=== PATIENT | female | born 1995 ===

== ENCOUNTER 2017-11-21 01:28 | Inpatient (IN) | payer MEDICAID, OTHER ==
[2017-11-21] MEDS ORDERED: Sodium Chloride 0.9% 1,000 ML ONE (01:37)
[2017-11-21] MEDS ORDERED: Sodium Chloride 0.9% 1,000 ML IV ONE ×2 (01:43→03:07)
--- NOTE | 2017-11-21 01:43 | C.PDOC ---
History Of Present Illness Patient presents to the ER with a complaint of epigastric and right upper abdominal pain associated with nausea and 3 episodes of vomiting that began today. LMP was 10/31/17. Denies fever, chills, or urinary symptoms. No tolerating po Time Seen by Provider: 11/21/17 01:43 Chief Complaint (Nursing): Abdominal Pain History Per: Patient History/Exam Limitations: no limitations Onset/Duration Of Symptoms: Hrs Current Symptoms Are (Timing): Still Present Severity: Moderate Pain Scale Rating Of: 4 Location Of Pain/Discomfort: Epigastric Radiation Of Pain To:: None Quality Of Discomfort: Unable To Describe Associated Symptoms: Nausea, Vomiting. denies: Fever, Chills, Urinary Symptoms Exacerbating Factors: None Alleviating Factors: None Recent travel outside of the [place]: No Abnormal Vaginal Bleeding: No Past Medical History Reviewed: Historical Data, Nursing Documentation, Vital Signs Vital Signs: Last Vital Signs Temp 98.9 F 11/21/17 05:42 Pulse 82 11/21/17 05:42 Resp 16 11/21/17 05:42 BP 104/67 11/21/17 05:42 Pulse Ox 99 11/21/17 05:59 Family History: States: No Known Family Hx - Social History Hx Alcohol Use: No Hx Substance Use: No - Immunization History Hx Tetanus Toxoid Vaccination: No Hx Influenza Vaccination: No Hx Pneumococcal Vaccination: No Review Of Systems Constitutional: Negative for: Fever, Chills Respiratory: Negative for: Cough, Shortness of Breath Gastrointestinal: Positive for: Nausea, Vomiting, Abdominal Pain Genitourinary: Negative for: Dysuria, Frequency, Hematuria Physical Exam - Physical Exam Appears: Non-toxic Skin: Warm, Dry Head: Normacephalic Oral Mucosa: Moist Chest: Symmetrical, No Tenderness Cardiovascular: Rhythm Regular Respiratory: No Rales, No Rhonchi, No Wheezing Gastrointestinal/Abdominal: Soft, Tenderness (ruq and mid epigastric), No Distention, No Guarding, No Rebound Back: Normal Inspection, No CVA Tenderness Extremity: Normal ROM Neurological/Psych: Oriented x3 ED Course And Treatment - Laboratory Results Result Diagrams: 11/21/17 01:48 11/21/17 01:48 O2 Sat by Pulse Oximetry: 99 (Room air) Pulse Ox Interpretation: Normal Progress Note: Blood work and urinalysis ordered. IV fluids, zofran, and pepcid administered. Spoke with the surgical services asst. will come and see the patient Disposition Counseled Patient/Family Regarding: Studies Performed, Diagnosis - Disposition Disposition Time: 01:43 Condition: FAIR Forms: [facility] (Frisian) - Clinical Impression Clinical Impression: Abdominal pain, Nausea, Vomiting, Cholecystitis - Scribe Statement The provider has reviewed the documentation as recorded by the Scribe Arik Fuchs All medical record entries made by the Scribe were at my direction and personally dictated by me. I have reviewed the chart and agree that the record accurately reflects my personal performance of the history, physical exam, medical decision making, and the department course for this patient. I have also personally directed, reviewed, and agree with the discharge instructions and disposition. Physician Patient Turnover Patient Signed Over To: Gracia Santana Handoff Comments: pending surgical eval, us reading and dispostion
[2017-11-21 01:52] LABS: BASO # 0.1 K/uL (0.0-0.2); BASO % 0.3 % (0.0-2.0); EOS # 0.1 K/uL (0.0-0.7); EOS % 0.6 % (0.0-4.0); HEMOGLOBIN 14.5 g/dL (11.0-16.0); LYMPH % 27.1 % (20.0-40.0); MEAN CELL VOLUME 95.4 fL (81.0-99.0); MEAN CORPUSCULAR HGB CONC 34.6 g/dL (33.0-37.0); MEAN PLATELET VOLUME 9.7 fL (7.2-11.7); MONO % 6.6 % (0.0-10.0); NEUT # 9.8 K/uL (1.8-7.0); NEUT % 65.4 % (50.0-75.0); RBC 4.4 Mil/uL (3.80-5.20); RED CELL DISTRIBUTION WIDTH 11.3 % (11.5-14.5); WHITE BLOOD COUNT 14.9 K/uL (4.8-10.8)
[2017-11-21 02:09] LABS: ALB/GLOB RATIO 1.5 (1.0-2.1); ALBUMIN 5.1 g/dL (3.5-5.0); ALT/SGPT 24 U/L (9-52); AST/SGOT 20 U/L (14-36); BLOOD UREA NITROGEN 6 mg/dL (7-17); CALCIUM 10.1 mg/dl (8.6-10.4); GFR NON-AFRICAN AMERICAN > 60; LIPASE 135 U/L (23-300)
[2017-11-21 02:40] LABS: VENOUS BLOOD GAS BASE EXCESS -3.3 mmol/L (0.0-2.0); VENOUS BLOOD GAS PCO2 46 mmHg (40-60); VENOUS BLOOD GAS PO2 32 mm/Hg (30-55); VENOUS BLOOD PH 7.31 (7.32-7.43)
[2017-11-21 03:35] LABS: HCG,QUALITATIVE URINE NEGATIVE (NEGATIVE)
[2017-11-21 03:44] LABS: SQUAMOUS EPITHIAL 2 /hpf (0-5); URINE BILIRUBIN NEGATIVE (NEGATIVE); URINE BLOOD NEGATIVE (NEGATIVE); URINE CLARITY Clear (Clear); URINE COLOR Yellow (YELLOW); URINE GLUCOSE (UA) NORMAL (Normal); URINE LEUKOCYTE ESTERASE NEG Leu/uL (Negative); URINE PROTEIN NEGATIVE (NEGATIVE); URINE UROBILINOGEN NORMAL mg/dL (0.2-1.0)
[2017-11-21] MEDS ORDERED: Iodixanol 320 MG/ML 100 ML BOTTLE IV ONE (03:52)
[2017-11-21] MEDS ORDERED: Piperacillin/Tazobact 3.375 gm 100 ML IVPB ONE (06:22)
[2017-11-21] MEDS: Piperacillin/Tazobact 3.375 gm 100 ML IVPB STA ×2 (06:23→06:44)
[2017-11-21] MEDS ORDERED: Ciprofloxacin 400mg/200ml D5W 400 MG/200 ML BAG IVPB STA (06:32)
[2017-11-21] MEDS ORDERED: metroNIDAZOLE IV 500 mg/100 ml 500 MG/100 ML BAG IVPB STA (06:35)
[2017-11-21] MEDS ORDERED: metroNIDAZOLE IV 500 mg/100 ml 500 MG/100 ML BAG ONE (06:39)
[2017-11-21] MEDS ORDERED: metroNIDAZOLE IV 500 mg/100 ml 500 MG/100 ML BAG IVPB SCH (06:45)
[2017-11-21] MEDS ORDERED: Ciprofloxacin 400mg/200ml D5W 400 MG/200 ML BAG IVPB ONE (07:40)
--- NOTE | 2017-11-21 09:41 | US ---
Date of service: 11/21/2017 HISTORY: gall stones, pain COMPARISON: None. TECHNIQUE: Sonographic evaluation of the right upper quadrant of the abdomen. FINDINGS: LIVER: Measures 14.9 cm in length. Normal echogenicity of the liver parenchyma. No mass. No intrahepatic bile duct dilatation. GALLBLADDER: Moderate gallbladder distention is appreciated with limited cholelithiasis at the dependent lumen. Thickening of the wall is appreciated up to 5 mm suspicious for cholecystitis however there is no reported sonographic Chavez sign and further clinical correlation is advised. No pericholecystic fluid collection identified. COMMON BILE DUCT: Measures 3.0 mm. No stones. No dilatation. PANCREAS: Unremarkable as visualized. No mass. No ductal dilatation. RIGHT KIDNEY: Measures 10.0 cm in length. Normal echogenicity. No calculus, mass, or hydronephrosis. AORTA: No aneurysmal dilatation. IVC: Unremarkable. OTHER FINDINGS: None . IMPRESSION: Borderline cholecystitis pattern. Cholelithiasis. Clinically correlate further. Normal CBD caliber. No prominent intrahepatic biliary dilatation.
[2017-11-21] MEDS ORDERED: Oxycodone/Acetaminophen 5/325 mg Tab PO PRN (10:05)
[2017-11-21] MEDS: Lactated Ringer's 1,000 ML IV SCH ×2 (10:26→21:37)
--- NOTE | 2017-11-21 11:14 | CP.PCM.HP ---
History of Present Illness - History of Present Illness History of Present Illness: GENERAL SURGERY HISTORY AND PHYSICAL FOR DR. GALDAMEZ 22YO F with no PMHx presents to the ED with abdominal pain. The pain is located in the RUQ and epigastric area. She had nausea and vomited x3. She reports the pain has been intermittent for 1 month and is unrelated to eating. Denies diarrhea. LMP was 10/31/17. PMHx: none Surg: none Allergies: none Social hx: denies tobacco, illicit drug use. Drinks etoh once a year Present on Admission - Present on Admission Any Indicators Present on Admission: No Past Patient History - Infectious Disease Hx of Infectious Diseases: None - Past Social History Smoking Status: Never Smoked - PSYCHIATRIC Hx Substance Use: No - SURGICAL HISTORY Hx Surgeries: No - ANESTHESIA Hx Anesthesia: No Meds Allergies/Adverse Reactions: Allergies Allergy/AdvReac Type Severity Reaction Status Date / Time No Known Allergies Allergy Unverified 11/21/17 01:38 Physical Exam - Constitutional Appears: Well, Non-toxic, No Acute Distress - Head Exam Head Exam: ATRAUMATIC, NORMAL INSPECTION - Eye Exam Eye Exam: EOMI, Normal appearance - Respiratory Exam Respiratory Exam: NORMAL BREATHING PATTERN. absent: Respiratory Distress - Cardiovascular Exam Cardiovascular Exam: +S1, +S2 - GI/Abdominal Exam GI & Abdominal Exam: Soft, Tenderness (RUQ). absent: Distended, Firm, Guarding , Hernia, Rebound, Rigid - Extremities Exam Extremities exam: Positive for: normal inspection - Neurological Exam Neurological exam: Alert, CN II-XII Intact, Oriented x3 - Psychiatric Exam Psychiatric exam: Normal Affect, Normal Mood - Skin Skin Exam: Dry, Warm Results - Vital Signs Recent Vital Signs: Last Vital Signs Temp 98.4 F 11/21/17 09:58 Pulse 87 11/21/17 09:58 Resp 20 11/21/17 09:58 BP 116/76 11/21/17 09:58 Pulse Ox 99 11/21/17 09:58 - Labs Result Diagrams: 11/21/17 01:48 11/21/17 01:48 Labs: Laboratory Results - last 24 hr 11/21/17 11/21/17 11/21/17 01:43 01:48 01:48 WBC 14.9 H RBC 4.40 Hgb 14.5 Hct 41.9 MCV 95.4 MCH 33.0 H MCHC 34.6 RDW 11.3 L Plt Count 215 MPV 9.7 Neut % (Auto) 65.4 Lymph % (Auto) 27.1 [place] % (Auto) 6.6 Eos % (Auto) 0.6 Baso % (Auto) 0.3 Neut # (Auto) 9.8 H Lymph # (Auto) 4.0 [place] # (Auto) 1.0 H Eos # (Auto) 0.1 Baso # (Auto) 0.1 pO2 VBG pH VBG pCO2 VBG HCO3 VBG Total CO2 VBG O2 Sat (Calc) VBG Base Excess VBG Potassium Glucose Lactate Sodium 145 Potassium 4.1 Chloride 105 Carbon Dioxide 23 Anion Gap 22 H BUN 6 L Creatinine 0.6 L Est GFR ( Amer) > 60 Est GFR (Non-Af Amer) > 60 Random Glucose 154 H Calcium 10.1 Total Bilirubin 2.0 H AST 20 ALT 24 Alkaline Phosphatase 94 Total Protein 8.5 H Albumin 5.1 H Globulin 3.3 Albumin/Globulin Ratio 1.5 Lipase 135 Venous Blood Potassium Urine Color Yellow Urine Clarity Clear Urine pH 6.0 Ur Specific [place] 1.010 Urine Protein Negative Urine Glucose (UA) Normal Urine Ketones 1+ H Urine Blood Negative Urine Nitrate Negative Urine Bilirubin Negative Urine Urobilinogen Normal Ur Leukocyte Esterase Neg Urine WBC (Auto) 3 Urine RBC (Auto) 1 Ur Squamous Epith Cells 2 Urine HCG, Qual Negative 11/21/17 02:34 WBC RBC Hgb Hct MCV MCH MCHC RDW Plt Count MPV Neut % (Auto) Lymph % (Auto) [place] % (Auto) Eos % (Auto) Baso % (Auto) Neut # (Auto) Lymph # (Auto) [place] # (Auto) Eos # (Auto) Baso # (Auto) pO2 32 VBG pH 7.31 L VBG pCO2 46 VBG HCO3 21.2 VBG Total CO2 24.6 VBG O2 Sat (Calc) 60.1 VBG Base Excess -3.3 L VBG Potassium 3.4 L Glucose 108 H Lactate 1.7 Sodium 143.0 Potassium Chloride 112.0 H Carbon Dioxide Anion Gap BUN Creatinine Est GFR ( Amer) Est GFR (Non-Af Amer) Random Glucose Calcium Total Bilirubin AST ALT Alkaline Phosphatase Total Protein Albumin Globulin Albumin/Globulin Ratio Lipase Venous Blood Potassium 3.4 L Urine Color Urine Clarity Urine pH Ur Specific [place] Urine Protein Urine Glucose (UA) Urine Ketones Urine Blood Urine Nitrate Urine Bilirubin Urine Urobilinogen Ur Leukocyte Esterase Urine WBC (Auto) Urine RBC (Auto) Ur Squamous Epith Cells Urine HCG, Qual Assessment & Plan - Assessment and Plan (Free Text) Assessment: 22 yo f with cholelithiasis, possible cholecystitis - Afebrile, VSS - Leukocytosis - CT: small gallstones, gallbladder wall thickening and possible pericholecystic fluid, no ductal dilation - US: Moderate gallbladder distention is appreciated with limited cholelithiasis at the dependent lumen. Thickening of the wall is appreciated up to 5 mm suspicious for cholecystitis however there is no reported sonographic Chavez sign and further clinical correlation is advised. No pericholecystic fluid collection identified. - Plan for OR Thursday for lap alesha - Trend bilirubin - IV Abx - Discussed plan with Dr. Duane Henning PGY-4
--- NOTE | 2017-11-21 12:12 | CT ---
Date of service: 11/21/2017 PROCEDURE: CT Abdomen and Pelvis with contrast HISTORY: abd pain, leukocytosis COMPARISON: None. TECHNIQUE: Following the intravenous administration of iodinated contrast material, a CT examination of the abdomen and pelvis performed from the domes of the diaphragms to the symphysis pubis with reformatted datasets provided in axial, sagittal and coronal planes. Oral contrast was not administered as per referring physician request. Contrast dose: Visipaque 320, 100 cc Radiation dose: Total exam DLP = 194.10 mGy-cm. This CT exam was performed using one or more of the following dose reduction techniques: Automated exposure control, adjustment of the mA and/or kV according to patient size, and/or use of iterative reconstruction technique. FINDINGS: LOWER THORAX: Unremarkable. LIVER: Unremarkable. No gross lesion or ductal dilatation. GALLBLADDER AND BILE DUCTS: Mild mural thickening seen which the gallbladder with suggestion of trace pericholecystic fluid. Limited radiodense cholelithiasis at the dependent lumen. Clinically correlate for potential cholecystitis nevertheless. PANCREAS: Unremarkable. No gross lesion or ductal dilatation. SPLEEN: Unremarkable. ADRENALS: Unremarkable. No mass. KIDNEYS AND URETERS: Unremarkable. No hydronephrosis. No solid mass. VASCULATURE: Unremarkable. No aortic aneurysm. BOWEL: Unremarkable. No obstruction. No gross mural thickening. APPENDIX: No CT evidence of appendicitis. PERITONEUM: Unremarkable. No free fluid. No free air. LYMPH NODES: Unremarkable. No enlarged lymph nodes. BLADDER: Unremarkable. REPRODUCTIVE: Limited pelvic ascites may be related to the gallbladder fossa findings. No suspicious adnexal changes bilaterally. BONES: No acute fracture. OTHER FINDINGS: None. IMPRESSION: Potential cholecystitis. Cholelithiasis appears minimal. Clinically correlate. Concordant preliminary report from [facility], 11/21/2017.
[2017-11-21] MEDS: Piperacill/Tazo 3.375gm in Dex 3.375 GM/50 ML BAG IVPB SCH ×2 (12:30→17:33)
[2017-11-22] MEDS: Piperacill/Tazo 3.375gm in Dex 3.375 GM/50 ML BAG IVPB SCH ×5 (00:07→22:25)
[2017-11-22] MEDS ORDERED: DiphenhydrAMINE 50 mg/ml Inj IVP ONE (00:51)
[2017-11-22] MEDS: Lactated Ringer's 1,000 ML IV SCH ×2 (05:33→16:12)
--- NOTE | 2017-11-22 08:52 | CP.PCM.PN ---
Subjective - Date & Time of Evaluation Date of Evaluation: 11/22/17 Time of Evaluation: 07:00 - Subjective Subjective: Pt seen and examined at bedside this AM. No adverse events overnight. patient states pain is improved with no nausea, vomiting, or fevers Objective - Vital Signs/Intake and Output Vital Signs (last 24 hours): Temp Pulse Resp BP Pulse Ox 98.6 F 88 20 113/74 100 11/22/17 00:00 11/22/17 00:00 11/22/17 00:00 11/22/17 00:00 11/22/17 00:00 Intake and Output: 11/22/17 11/22/17 06:59 18:59 Intake Total 1600 Output Total 400 Balance 1200 - Medications Medications: Current Medications Docusate Sodium (Colace) 100 mg PO DAILY [facility] Heparin Sodium (Porcine) (Heparin) 5,000 units SC Q12 [facility] Stop: 11/22/17 22:01 Last Admin: 11/21/17 21:38 Dose: 5,000 units Lactated Ringer's (Lactated Ringer's) 1,000 mls @ 100 mls/hr IV .Q10H [facility] Last Admin: 11/22/17 05:33 Dose: Not Given Piperacillin Sod/Tazobactam Sod (Zosyn 3.375 Gm Iv Premix) 3.375 gm in 50 mls @ 100 mls/hr IVPB Q6H [facility] PRN Reason: Protocol Last Admin: 11/22/17 04:52 Dose: 100 mls/hr Ibuprofen (Motrin Tab) 400 mg PO Q6 PRN PRN Reason: Fever >100.4 F Morphine Sulfate (Morphine) 2 mg IVP Q4H PRN PRN Reason: Pain, severe (8-10) Oxycodone/Acetaminophen (Percocet 5/325 Mg Tab) 1 tab PO Q4 PRN PRN Reason: Pain, moderate (4-7) Stop: 11/24/17 10:06 Pneumococcal Polyvalent Vaccine (Pneumovax 23 Vaccine) 0.5 ml IM .ONCE ONE Stop: 11/23/17 10:01 - Labs Labs: 11/21/17 01:48 11/21/17 01:48 - Constitutional Appears: Well, Non-toxic, No Acute Distress - Head Exam Head Exam: ATRAUMATIC, NORMOCEPHALIC - Eye Exam Eye Exam: Normal appearance. absent: Conjunctival injection, Scleral icterus - ENT Exam ENT Exam: Mucous Membranes Moist, Normal Oropharynx - Respiratory Exam Respiratory Exam: NORMAL BREATHING PATTERN. absent: Accessory Muscle Use, Respiratory Distress - Cardiovascular Exam Cardiovascular Exam: RRR - GI/Abdominal Exam GI & Abdominal Exam: Soft, Tenderness (ruq and epigastrium moderate tenderness to palpation). absent: Distended, Rebound - Extremities Exam Extremities Exam: absent: Calf Tenderness, Pedal Edema, Tenderness - Neurological Exam Neurological Exam: Alert, Awake, Oriented x3 - Psychiatric Exam Psychiatric exam: Normal Affect, Normal Mood - Skin Skin Exam: Dry, Intact, Normal Color, Warm Assessment and Plan - Assessment and Plan (Free Text) Assessment: 22F with acute cholecystitis, possible choledocholithiasis Plan: Continue to trend CBC and CMP--leukocytosis resolved but bilirubin increased MRCP today Continue NPO for MRCP Pending MRCP results may consider GI consult for choledocholithiasis IVF Antibiotics PRN pain and nausea medication Plan for OR tomorrow for lap cholecystectomy pending results of MRCP Discussed with Dr. Duane Wagner, PGY2
[2017-11-22 09:04] LABS: BASO % 0.6 % (0.0-2.0); EOS # 0.1 K/uL (0.0-0.7); LYMPH # 1.1 K/uL (1.0-4.3); LYMPH % 20.4 % (20.0-40.0); MEAN CELL VOLUME 94.5 fL (81.0-99.0); MEAN CORPUSCULAR HEMOGLOBIN 32.7 pg (27.0-31.0); MEAN CORPUSCULAR HGB CONC 34.5 g/dL (33.0-37.0); MEAN PLATELET VOLUME 9.5 fL (7.2-11.7); MONO # 0.2 K/uL (0.0-0.8); MONO % 4.4 % (0.0-10.0); NEUT # 3.9 K/uL (1.8-7.0); NEUT % 73.6 % (50.0-75.0); RBC 3.59 Mil/uL (3.80-5.20); RED CELL DISTRIBUTION WIDTH 11.3 % (11.5-14.5)
[2017-11-22 09:27] LABS: WHITE BLOOD COUNT 5.2 K/uL (4.8-10.8)
[2017-11-22 09:28] LABS: HEMOGLOBIN 11.7 g/dL (11.0-16.0)
[2017-11-22 09:38] LABS: ALB/GLOB RATIO 1.5 (1.0-2.1); ALBUMIN 3.9 g/dL (3.5-5.0); ALT/SGPT 30 U/L (9-52); AST/SGOT 15 U/L (14-36); BLOOD UREA NITROGEN 5 mg/dL (7-17); CALCIUM 8.9 mg/dl (8.6-10.4); GFR NON-AFRICAN AMERICAN > 60
[2017-11-22 12:17] LABS: MEAN CELL VOLUME 94.8 fL (81.0-99.0); MEAN CORPUSCULAR HEMOGLOBIN 33.5 pg (27.0-31.0); MEAN CORPUSCULAR HGB CONC 35.3 g/dL (33.0-37.0); MEAN PLATELET VOLUME 9.2 fL (7.2-11.7); RBC 3.6 Mil/uL (3.80-5.20); RED CELL DISTRIBUTION WIDTH 10.7 % (11.5-14.5); WHITE BLOOD COUNT 6.8 K/uL (4.8-10.8)
--- NOTE | 2017-11-22 14:26 | CP.PCM.PN ---
Subjective - Date & Time of Evaluation Date of Evaluation: 11/22/17 Time of Evaluation: 14:25 - Subjective Subjective: mi;ld ruq tenderness noted. all systems go for a lap alesha in am Objective - Vital Signs/Intake and Output Vital Signs (last 24 hours): Temp Pulse Resp BP Pulse Ox 99.3 F 93 H 20 104/66 98 11/22/17 08:00 11/22/17 08:00 11/22/17 08:00 11/22/17 08:00 11/22/17 08:00 Intake and Output: 11/22/17 11/22/17 06:59 18:59 Intake Total 1600 Output Total 400 Balance 1200 - Medications Medications: Current Medications Docusate Sodium (Colace) 100 mg PO DAILY [facility] Last Admin: 11/22/17 11:02 Dose: 100 mg Heparin Sodium (Porcine) (Heparin) 5,000 units SC Q12 [facility] Stop: 11/22/17 22:01 Last Admin: 11/22/17 11:03 Dose: 5,000 units Lactated Ringer's (Lactated Ringer's) 1,000 mls @ 100 mls/hr IV .Q10H [facility] Last Admin: 11/22/17 05:33 Dose: Not Given Piperacillin Sod/Tazobactam Sod (Zosyn 3.375 Gm Iv Premix) 3.375 gm in 50 mls @ 100 mls/hr IVPB Q6H [facility] PRN Reason: Protocol Last Admin: 11/22/17 11:00 Dose: 100 mls/hr Ibuprofen (Motrin Tab) 400 mg PO Q6 PRN PRN Reason: Fever >100.4 F Morphine Sulfate (Morphine) 2 mg IVP Q4H PRN PRN Reason: Pain, severe (8-10) Oxycodone/Acetaminophen (Percocet 5/325 Mg Tab) 1 tab PO Q4 PRN PRN Reason: Pain, moderate (4-7) Stop: 11/24/17 10:06 Pneumococcal Polyvalent Vaccine (Pneumovax 23 Vaccine) 0.5 ml IM .ONCE ONE Stop: 11/23/17 10:01 - Labs Labs: 11/22/17 12:11 11/22/17 08:56
[2017-11-23] MEDS: Lactated Ringer's 1,000 ML IV SCH ×3 (02:00→21:23)
[2017-11-23] MEDS: Piperacill/Tazo 3.375gm in Dex 3.375 GM/50 ML BAG IVPB SCH ×4 (04:54→23:25)
[2017-11-23 06:35] LABS: BASO % 0.3 % (0.0-2.0); EOS # 0.1 K/uL (0.0-0.7); EOS % 2.5 % (0.0-4.0); LYMPH # 1.2 K/uL (1.0-4.3); LYMPH % 21.8 % (20.0-40.0); MEAN CELL VOLUME 94.9 fL (81.0-99.0); MEAN CORPUSCULAR HEMOGLOBIN 33.2 pg (27.0-31.0); MEAN PLATELET VOLUME 9.3 fL (7.2-11.7); MONO # 0.6 K/uL (0.0-0.8); MONO % 10.9 % (0.0-10.0); NEUT # 3.6 K/uL (1.8-7.0); NEUT % 64.5 % (50.0-75.0); RBC 3.61 Mil/uL (3.80-5.20); RED CELL DISTRIBUTION WIDTH 11.2 % (11.5-14.5); WHITE BLOOD COUNT 5.6 K/uL (4.8-10.8)
[2017-11-23 06:46] LABS: ALB/GLOB RATIO 1.5 (1.0-2.1); ALT/SGPT 25 U/L (9-52); AST/SGOT 19 U/L (14-36); BLOOD UREA NITROGEN 7 mg/dL (7-17); CALCIUM 8.9 mg/dl (8.6-10.4); GFR NON-AFRICAN AMERICAN > 60
[2017-11-23] MEDS ORDERED: Pneumococcal 23-Valent Vaccine IM ONE (10:00)
[2017-11-23] MEDS ORDERED: Bupivacaine-Epi 0.5%-1:200,000 PF Inj ONE (13:51)
[2017-11-23] MEDS ORDERED: Iohexol 240 (50 ml) ONE (13:51)
[2017-11-23] MEDS ORDERED: Midazolam 2 MG/2 ML VIAL ONE (14:01)
[2017-11-23] MEDS ORDERED: Propofol 10 mg/ml Inj (20 ML) ONE (14:01)
[2017-11-23] MEDS ORDERED: Neostigmine Methylsulfate 3mg/3ml Syringe IV ONE (14:55)
--- NOTE | 2017-11-23 15:28 | PCM.SURG1 ---
Surgeon's Initial Post Op Note - Surgeon's Notes Surgeon: Dr. Zepeda Sheet Tester: Dr. Naranjo PGY3, Mary Jane Gonzalez OMS4 Type of Anesthesia: General Endo Pre-Operative Diagnosis: acute cholecystitis Operative Findings: see operative report Post-Operative Diagnosis: same Operation Performed: laparoscopic cholecystectomy with intra-operative cholangiogram Specimen/Specimens Removed: gallbladder Estimated Blood Loss: EBL {In ML}: 5 Blood Products Given: N/A Drains Used: No Drains Post-Op Condition: Good Date of Surgery/Procedure: 11/23/17 Time of Surgery/Procedure: 14:09
[2017-11-23] MEDS ORDERED: HYDROmorphone 0.5 mg/0.5 ml ISec IVP PRN (15:35)
--- NOTE | 2017-11-23 16:40 | RAD ---
Date of service: 11/23/2017 PROCEDURE: Intraoperative fluoroscopy HISTORY: CHOLECYSTITIS/CHOLELITHIASIIS COMPARISON: Not available TECHNIQUE: Intraoperative fluoroscopy was provided for an intraoperative cholangiogram. Total time of fluoroscopy was 42.0 seconds. Cumulative dose was 4.89 mGy. FINDINGS: Multiple fluoroscopic spot films are submitted. These demonstrate opacification of the biliary tree without demonstrated filling defect. IMPRESSION: Fluoroscopy provided
[2017-11-23 16:59] VITALS: RESP 20
[2017-11-24] MEDS: Lactated Ringer's 1,000 ML IV SCH (08:19)
--- NOTE | 2017-11-24 08:34 | OP ---
Copied To: Uche Zepeda MD Attending MD: Uche Zepeda MD PROCEDURE DATE: 11/23/2017 PREOPERATIVE DIAGNOSES: Acute cholecystitis and cholelithiasis, possible choledocholithiasis. POSTOPERATIVE DIAGNOSES: Acute cholecystitis and cholelithiasis, possible choledocholithiasis. PROCEDURE PERFORMED: Laparoscopic cholecystectomy with operative cholangiogram. SURGEON: Uche Zepeda MD TRAPPER ANIMAL: FINDINGS: The gallbladder was markedly distended with very thickened rangel with some evidence of acute inflammation. Multiple stones were noted in the gallbladder. The common duct is within normal limits. There were no stones noted in the common duct. DESCRIPTION OF PROCEDURE: Under general anesthesia, the patient was prepared and draped in the usual sterile fashion. CO2 was insufflated through a Veress needle inserted in the umbilical area. A 10-mm trocar was then inserted through which a laparoscope was inserted. Under direct vision, a 5-mm epigastric port and a 5-mm right upper quadrant ports were inserted. The patient was then placed in a reverse Trendelenburg position, was turned over towards the left side. Gallbladder was grasped at the ampulla. Traction was applied. The cystic duct and cystic arteries were isolated. They were transected. First, the cystic duct was opened. A cholangiogram was performed and showed no stones. Therefore, this was then transected between hemoclips so were the branches of the cystic artery. Gallbladder was then removed from the liver bed with electrocautery. No bleeding was noted during this process. The gallbladder was extracted through the umbilical port. The area was irrigated with large amount of saline solution. The irrigating fluid was suctioned out. CO2 was then allowed to escape from the peritoneal cavity. The trocars were removed. The wound was closed in a routine fashion. Estimated blood loss about 20 mL. No complications. Uche Zepeda MD
[2017-11-24 14:51] LABS: ALB/GLOB RATIO 1.3 (1.0-2.1); ALBUMIN 4.3 g/dL (3.5-5.0); ALT/SGPT 66 U/L (9-52); AST/SGOT 66 U/L (14-36); BLOOD UREA NITROGEN 2 mg/dL (7-17); CALCIUM 9.4 mg/dl (8.6-10.4); GFR NON-AFRICAN AMERICAN > 60
--- NOTE | 2017-11-24 15:39 | CP.PCM.DIS ---
Provider - Provider Date of Admission: 11/21/17 10:09 Attending physician: Uche Zepeda MD Time Spent in preparation of Discharge (in minutes): 30 Diagnosis - Discharge Diagnosis (1) Cholecystitis Status: Acute Hospital Course - Lab Results Lab Results: Most Recent Lab Values WBC 5.6 K/uL (4.8-10.8) 11/23/17 06:26 RBC 3.61 Mil/uL (3.80-5.20) L 11/23/17 06:26 Hgb 12.0 g/dL (11.0-16.0) 11/23/17 06:26 Hct 34.3 % (34.0-47.0) 11/23/17 06:26 MCV 94.9 fL (81.0-99.0) 11/23/17 06:26 MCH 33.2 pg (27.0-31.0) H 11/23/17 06:26 MCHC 35.0 g/dL (33.0-37.0) 11/23/17 06:26 RDW 11.2 % (11.5-14.5) L 11/23/17 06:26 Plt Count 122 K/uL (130-400) L 11/23/17 06:26 MPV 9.3 fL (7.2-11.7) 11/23/17 06:26 Neut % (Auto) 64.5 % (50.0-75.0) 11/23/17 06:26 Lymph % (Auto) 21.8 % (20.0-40.0) 11/23/17 06:26 [place] % (Auto) 10.9 % (0.0-10.0) H 11/23/17 06:26 Eos % (Auto) 2.5 % (0.0-4.0) 11/23/17 06:26 Baso % (Auto) 0.3 % (0.0-2.0) 11/23/17 06:26 Neut # (Auto) 3.6 K/uL (1.8-7.0) 11/23/17 06:26 Lymph # (Auto) 1.2 K/uL (1.0-4.3) 11/23/17 06:26 [place] # (Auto) 0.6 K/uL (0.0-0.8) 11/23/17 06:26 Eos # (Auto) 0.1 K/uL (0.0-0.7) 11/23/17 06:26 Baso # (Auto) 0.0 K/uL (0.0-0.2) 11/23/17 06:26 Differential Comment 11/22/17 08:56 pO2 32 mm/Hg (30-55) 11/21/17 02:34 VBG pH 7.31 (7.32-7.43) L 11/21/17 02:34 VBG pCO2 46 mmHg (40-60) 11/21/17 02:34 VBG HCO3 21.2 mmol/L 11/21/17 02:34 VBG Total CO2 24.6 mmol/L (22-28) 11/21/17 02:34 VBG O2 Sat (Calc) 60.1 % (40-65) 11/21/17 02:34 VBG Base Excess -3.3 mmol/L (0.0-2.0) L 11/21/17 02:34 VBG Potassium 3.4 mmol/L (3.6-5.2) L 11/21/17 02:34 Sodium 143.0 mmol/l (132-148) 11/21/17 02:34 Chloride 112.0 mmol/L (98-107) H 11/21/17 02:34 Glucose 108 mg/dl (65-105) H 11/21/17 02:34 Lactate 1.7 mmol/L (0.7-2.1) 11/21/17 02:34 Sodium 144 mmol/L (132-148) 11/24/17 14:08 Potassium 3.9 mmol/L (3.6-5.2) 11/24/17 14:08 Chloride 102 mmol/L (98-107) 11/24/17 14:08 Carbon Dioxide 29 mmol/L (22-30) 11/24/17 14:08 Anion Gap 16 (10-20) 11/24/17 14:08 BUN 2 mg/dL (7-17) L 11/24/17 14:08 Creatinine 0.5 mg/dL (0.7-1.2) L 11/24/17 14:08 Est GFR ( Amer) > 60 11/24/17 14:08 Est GFR (Non-Af Amer) > 60 11/24/17 14:08 Random Glucose 166 mg/dL (65-105) H 11/24/17 14:08 Calcium 9.4 mg/dl (8.6-10.4) 11/24/17 14:08 Total Bilirubin 1.9 mg/dL (0.2-1.3) H 11/24/17 14:08 AST 66 U/L (14-36) H D 11/24/17 14:08 ALT 66 U/L (9-52) H D 11/24/17 14:08 Alkaline Phosphatase 62 U/L (38-126) 11/24/17 14:08 Total Protein 7.6 g/dL (6.3-8.3) 11/24/17 14:08 Albumin 4.3 g/dL (3.5-5.0) 11/24/17 14:08 Globulin 3.2 gm/dL (2.2-3.9) 11/24/17 14:08 Albumin/Globulin Ratio 1.3 (1.0-2.1) 11/24/17 14:08 Lipase 135 U/L (23-300) 11/21/17 01:48 Venous Blood Potassium 3.4 mmol/L (3.6-5.2) L 11/21/17 02:34 Urine Color Yellow (YELLOW) 11/21/17 01:43 Urine Clarity Clear (Clear) 11/21/17 01:43 Urine pH 6.0 (5.0-8.0) 11/21/17 01:43 Ur Specific [place] 1.010 (1.003-1.030) 11/21/17 01:43 Urine Protein Negative mg/dL (NEGATIVE) 11/21/17 01:43 Urine Glucose (UA) Normal mg/dL (Normal) 11/21/17 01:43 Urine Ketones 1+ mg/dL (NEGATIVE) H 11/21/17 01:43 Urine Blood Negative (NEGATIVE) 11/21/17 01:43 Urine Nitrate Negative (NEGATIVE) 11/21/17 01:43 Urine Bilirubin Negative (NEGATIVE) 11/21/17 01:43 Urine Urobilinogen Normal mg/dL (0.2-1.0) 11/21/17 01:43 Ur Leukocyte Esterase Neg Jonathan/uL (Negative) 11/21/17 01:43 Urine WBC (Auto) 3 /hpf (0-5) 11/21/17 01:43 Urine RBC (Auto) 1 /hpf (0-3) 11/21/17 01:43 Ur Squamous Epith Cells 2 /hpf (0-5) 11/21/17 01:43 Urine HCG, Qual Negative (NEGATIVE) 11/23/17 10:24 - Hospital Course Hospital Course: 22F presented with epigastric pain, found to have cholecystitis, underwent lap alesha with IOC. Post-op course has been uncomplicated. Tbili trending down. Pt tolerated diet. No N/V. Pain controlled. Ambulating without difficulty. Clear for D/C from surgical standpoint. Discharge Exam - Head Exam Head Exam: ATRAUMATIC, NORMOCEPHALIC - Eye Exam Eye Exam: EOMI - ENT Exam ENT Exam: Mucous Membranes Moist - Neck Exam Neck exam: Full Rom - Respiratory Exam Respiratory Exam: NORMAL BREATHING PATTERN. absent: Accessory Muscle Use, Respiratory Distress - GI/Abdominal Exam GI & Abdominal Exam: Soft, Tenderness (per-incisional ). absent: Distended, Firm, Guarding, Rebound, Rigid - Neurological Exam Neurological exam: Alert, Oriented x3 - Skin Skin Exam: Dry, Warm Discharge Plan - Discharge Medications Prescriptions: Ketorolac Tromethamine [Toradol] 10 mg PO Q6H #20 tab - Follow Up Plan Condition: GOOD Disposition: HOME/ ROUTINE Patient education suggested?: Yes Instructions: Cholecystectomy, Laparoscopic Surgery Additional Instructions: Follow up with Dr. Zepeda in 1 week No heavy lifting >15-20lbs for 4 weeks Pain meds as instructed Referrals: Uche Zepeda MD [Staff Provider] -
[2017-11-24 17:24] VITALS: BP 109/74; PULSE 103; TEMP 97.6; O2SAT 99
== END 2017-11-24 22:00 | disposition home or self-care (01) | DRG 494 ==
LOC: C.ER 01:28 → C.9E 10:09 → C.3T 10:41
PROVIDERS: ADMIT Surgery; ATTEND Surgery
PROC: BF131ZZ Fluoroscopy of Gallbladder and Bile Ducts using Low Osmolar Contrast (ICD-10-PCS; 2017-11-23)
PROC: 0FT44ZZ Resection of Gallbladder, Percutaneous Endoscopic Approach (ICD-10-PCS; principal; 2017-11-23 13:00)
DX: K80.00 Calculus of gallbladder with acute cholecystitis without obstruction (principal)